=== PATIENT | female | born 1955 | race American Indian/Alaskan Native ===

== ENCOUNTER 2016-12-04 19:02 | Emergency (ER) | payer SELFPAY | END 2016-12-04 20:18 | disposition left against medical advice (07) | LOC: ED 19:02 | DX: Z04.3 Encounter for examination and observation following other accident (principal); Z53.21 Procedure and treatment not carried out due to patient leaving prior to being seen by health care provider ==

== ENCOUNTER 2016-12-28 11:14 | Emergency (ER) | payer MEDICARE ==
[2016-12-28 12:29] VITALS: BP 157/93
[2016-12-28 15:08] LABS: Basophils % (Auto) 0.6 % (0.0-1.8); Eosinophils % (Auto) 6.4 % (0.0-4.3); Hemoglobin 12.9 gm/dl (10.1-14.3); Mean Corpuscular HGB Conc 32 % (30-34); Mean Corpuscular Volume 76 fl (79-97); Platelet Count 248 K/mm3 (140-440); Red Blood Count 5.27 M/mm3 (3.65-5.03); Red Cell Distribution Width 14.5 % (13.2-15.2)
[2016-12-28 15:15] LABS: Mean Corpuscular Hemoglobin 25 pg (28-32)
[2016-12-28 16:05] LABS: Alanine Aminotransferase 24 units/L (7-56); Albumin 4.3 g/dL (3.9-5); Albumin/Globulin Ratio 1.2 %; Alkaline Phosphatase 79 units/L (35-129); Anion Gap 14 mmol/L; BUN/Creatinine Ratio 18.33; Bilirubin,Total 0.3 mg/dL (0.1-1.2); Blood Urea Nitrogen 11 mg/dL (7-17); Calcium 9.6 mg/dL (8.4-10.2); Carbon Dioxide 31 mmol/L (22-30); Chloride 101.1 mmol/L (98-107); Glucose 99 mg/dL (65-100); Lipase 19 units/L (13-60); Potassium 3.7 mmol/L (3.6-5.0); Sodium 142 mmol/L (137-145); Total Protein 7.8 g/dL (6.3-8.2)
[2016-12-28 16:18] LABS: Bilirubin,Urine NEG (Negative); Blood,Urine SM (Negative); Ketones,Urine NEG (Negative); Leukocyte Esterase,Urine NEG (Negative); Mucus,Urine FEW /HPF; Nitrite,Urine NEG (Negative); Protein,Urine <15 mg/dL mg/dL (Negative); Urobilinogen,Urine < 2.0 mg/dL (<2.0)
[2016-12-28 16:24] LABS: WBC,Urine < 1.0 /HPF (0.0-6.0)
--- NOTE | 2016-12-30 18:52 | ED Elopement Review ---
ED Pt Elopement review - Results review Lab results: Laboratory Tests 12/28/16 12/28/16 12/28/16 14:30 14:59 14:59 WBC 4.0 L RBC 5.27 H Hgb 12.9 Hct 40.0 MCV 76 L MCH 25 L MCHC 32 RDW 14.5 Plt Count 248 Lymph % (Auto) 40.3 H [place] % (Auto) 11.4 H Eos % (Auto) 6.4 H Baso % (Auto) 0.6 Lymph # 1.6 [place] # 0.5 Eos # 0.3 Baso # 0.0 Seg Neutrophils % 41.3 Seg Neutrophils # 1.6 L Sodium 142 Potassium 3.7 Chloride 101.1 Carbon Dioxide 31 H Anion Gap 14 BUN 11 Creatinine 0.6 L Estimated GFR > 60 BUN/Creatinine Ratio 18.33 Glucose 99 Calcium 9.6 Total Bilirubin 0.3 AST 26 ALT 24 Alkaline Phosphatase 79 Total Protein 7.8 Albumin 4.3 Albumin/Globulin Ratio 1.2 Lipase 19 Urine Color Yellow Urine Turbidity Clear Urine pH 6.0 Ur Specific [place] 1.015 Urine Protein <15 mg/dl Urine Glucose (UA) Neg Urine Ketones Neg Urine Blood Sm Urine Nitrite Neg Urine Bilirubin Neg Urine Urobilinogen < 2.0 Ur Leukocyte Esterase Neg Urine WBC (Auto) < 1.0 Urine RBC (Auto) 1.0 U Epithel Cells (Auto) 1.0 Urine Mucus Few - Call Back decision Pt Call Back Decision: No action required
== END 2016-12-28 21:00 | disposition left against medical advice (07) ==
LOC: ED 11:14
DX: R10.30 Lower abdominal pain, unspecified (principal); R10.2 Pelvic and perineal pain; Z53.21 Procedure and treatment not carried out due to patient leaving prior to being seen by health care provider
CPT/HCPCS: 36415; 80053; 81001; 83690; 85025

== ENCOUNTER 2017-06-10 12:12 | Emergency (ER) | payer MEDICARE ==
--- NOTE | 2017-06-10 12:29 | Emergency Department Report ---
Stated Complaint: CHEST/DRY MOUTH/FATIGUE Time Seen by Provider: 06/10/17 12:25 - HPI History of Present Illness: PT c/o intermittent dry mouth x 6 weeks. PT c/o intermittent chest pain x 2 weeks - ROS Review of Systems: + allergies - frequency - dysuria - Exam Physical Exam: PT looks well, non toxic. PT in no acute resp distress. RRR MSE screening note: Focused history and physical exam performed. Due to findings the following was ordered: labs, ekg, xr ED Disposition for MSE Condition: Stable
[2017-06-10 12:30] VITALS: BP 140/84
[2017-06-10 12:58] LABS: Basophils % (Auto) 0.6 % (0.0-1.8); Eosinophils % (Auto) 4.7 % (0.0-4.3); Hematocrit 40.6 % (30.3-42.9); Hemoglobin 13.4 gm/dl (10.1-14.3); Mean Corpuscular HGB Conc 33 % (30-34); Mean Corpuscular Volume 76 fl (79-97); Platelet Count 241 K/mm3 (140-440); Red Blood Count 5.34 M/mm3 (3.65-5.03); Red Cell Distribution Width 15.1 % (13.2-15.2); White Blood Count 4.5 K/mm3 (4.5-11.0)
[2017-06-10 12:59] LABS: Mean Corpuscular Hemoglobin 25 pg (28-32)
--- NOTE | 2017-06-10 13:00 | XRay Report ---
CHEST 2 VIEWS INDICATION: Chest pain. COMPARISON: None similar at this institution. FINDINGS: Frontal and lateral chest radiographs demonstrate mild exaggerated heart size. Grossly normal mediastinal and hilar contours. No pleural effusions or CHF. Few bony degenerative changes. CONCLUSION: No significant acute chest process, as described. Thank you for the opportunity to participate in this patient's care.
[2017-06-10 13:08] LABS: Alanine Aminotransferase 14 units/L (7-56); Albumin 4.1 g/dL (3.9-5); Albumin/Globulin Ratio 1.3 %; Alkaline Phosphatase 60 units/L (35-129); Anion Gap 14 mmol/L; BUN/Creatinine Ratio 14.28; Blood Urea Nitrogen 10 mg/dL (7-17); Calcium 9.4 mg/dL (8.4-10.2); Carbon Dioxide 29 mmol/L (22-30); Chloride 103.3 mmol/L (98-107); Glucose 90 mg/dL (65-100); Potassium 3.3 mmol/L (3.6-5.0); Sodium 143 mmol/L (137-145); Total Protein 7.3 g/dL (6.3-8.2)
[2017-06-10 13:09] LABS: INR 0.94 (0.87-1.13)
[2017-06-10 13:10] LABS: Partial Thromboplastin Time 32.3 Sec. (24.2-36.6)
--- NOTE | 2017-06-10 23:32 | ED Elopement Review ---
ED Pt Elopement review - Results review Lab results: Laboratory Tests 06/10/17 06/10/17 06/10/17 12:33 12:33 12:33 WBC 4.5 RBC 5.34 H Hgb 13.4 Hct 40.6 MCV 76 L MCH 25 L MCHC 33 RDW 15.1 Plt Count 241 Lymph % (Auto) 43.6 H [place] % (Auto) 8.4 H Eos % (Auto) 4.7 H Baso % (Auto) 0.6 Lymph # 2.0 [place] # 0.4 Eos # 0.2 Baso # 0.0 Seg Neutrophils % 42.7 Seg Neutrophils # 1.9 PT 12.5 INR 0.94 APTT 32.3 Sodium 143 Potassium 3.3 L Chloride 103.3 Carbon Dioxide 29 Anion Gap 14 BUN 10 Creatinine 0.7 Estimated GFR > 60 BUN/Creatinine Ratio 14.28 Glucose 90 Calcium 9.4 Total Bilirubin 0.30 AST 16 ALT 14 Alkaline Phosphatase 60 Troponin T < 0.010 NT-Pro-B Natriuret Pep < 5 Total Protein 7.3 Albumin 4.1 Albumin/Globulin Ratio 1.3 - Call Back decision Pt Call Back Decision: Call pt to return to ED [facility] (chest pain should be further evaluated)
== END 2017-06-10 13:00 | disposition left against medical advice (07) ==
LOC: ED 12:12
DX: R07.9 Chest pain, unspecified (principal); Z53.21 Procedure and treatment not carried out due to patient leaving prior to being seen by health care provider
CPT/HCPCS: 36415; 71020; 80053; 83880; 84484; 85025; 85610; 85730; 93005; 93010

== ENCOUNTER 2017-09-28 14:52 | Emergency (ER) | payer MEDICARE ==
[2017-09-28 15:23] LABS: Basophils % (Auto) 0.6 % (0.0-1.8); Eosinophils % (Auto) 4.7 % (0.0-4.3); Hematocrit 41.8 % (30.3-42.9); Hemoglobin 13.8 gm/dl (10.1-14.3); Mean Corpuscular HGB Conc 33 % (30-34); Mean Corpuscular Volume 77 fl (79-97); Platelet Count 263 K/mm3 (140-440); Red Blood Count 5.45 M/mm3 (3.65-5.03); Red Cell Distribution Width 14.1 % (13.2-15.2); White Blood Count 4.7 K/mm3 (4.5-11.0)
[2017-09-28 15:25] LABS: Mean Corpuscular Hemoglobin 25 pg (28-32)
[2017-09-28 15:34] LABS: INR 0.85 (0.87-1.13)
[2017-09-28 15:35] LABS: Partial Thromboplastin Time 31.6 Sec. (24.2-36.6)
[2017-09-28 15:43] LABS: Alanine Aminotransferase 19 units/L (7-56); Albumin 4.3 g/dL (3.9-5); BUN/Creatinine Ratio 24; Blood Urea Nitrogen 17 mg/dL (7-17); Calcium 9.3 mg/dL (8.4-10.2); Carbon Dioxide 26 mmol/L (22-30); Glucose 94 mg/dL (65-100); Total Protein 7.5 g/dL (6.3-8.2)
[2017-09-28 15:44] LABS: Albumin/Globulin Ratio 1.3 %; Alkaline Phosphatase 66 units/L (35-129); Anion Gap 17 mmol/L; Chloride 100.5 mmol/L (98-107); Lipase 27 units/L (13-60); Potassium 3.8 mmol/L (3.6-5.0); Sodium 140 mmol/L (137-145)
[2017-09-28 15:47] LABS: Bilirubin,Urine NEG (Negative); Blood,Urine NEG (Negative); Ketones,Urine NEG (Negative); Leukocyte Esterase,Urine NEG (Negative); Mucus,Urine FEW /HPF; Nitrite,Urine NEG (Negative); Protein,Urine <15 mg/dL mg/dL (Negative); Urobilinogen,Urine < 2.0 mg/dL (<2.0); WBC,Urine < 1.0 /HPF (0.0-6.0)
--- NOTE | 2017-09-28 16:38 | Emergency Department Report ---
ED General Adult HPI - General Chief complaint: Abdominal Pain Stated complaint: BLOOD IN STOOL Time Seen by Provider: 09/28/17 16:19 Source: patient Mode of arrival: Ambulatory Limitations: No Limitations - History of Present Illness Initial comments: History of present illness 61-year-old female history of previous hematochezia states that she has been diagnosed with hemorrhoids is set to see GI in October is here stating she had several episodes today and it concerned her and she states that she does occasionally take NSAIDs she notes little bit of bright red blood on the toilet paper and uncontrollable she denies any dizziness denies any chest pain denies abdominal pain denies any black or bloody stool denies any heavy rectal bleeding denies any syncope -: days(s) Radiation: non-radiation Quality: other (no abdominal pain) Associated Symptoms: denies other symptoms - Related Data Allergies Allergy/AdvReac Type Severity Reaction Status Date / Time Seafood Allergy Hives Uncoded 09/28/17 14:53 ED Review of Systems ROS: Stated complaint: BLOOD IN STOOL Other details as noted in HPI Comment: All other systems reviewed and negative Constitutional: no symptoms reported. denies: diaphoresis, fever, malaise, weakness Respiratory: denies: orthopnea, shortness of breath, SOB with exertion, SOB at rest, stridor Cardiovascular: denies: chest pain, palpitations, dyspnea on exertion, orthopnea , syncope ED Past Medical Hx - Past Medical History Hx Diabetes: Yes Hx Arthritis: Yes Additional medical history: Heart problem, back injury, sinus problems - Surgical History Hx Cholecystectomy: Yes Additional Surgical History: Partial hysterectomy - Social History Smoking Status: Never Smoker Substance Use Type: None ED Physical Exam - General Limitations: No Limitations General appearance: alert, in no apparent distress - Head Head exam: Present: atraumatic, normocephalic, normal inspection - Eye Eye exam: Present: normal appearance, PERRL, EOMI - Neck Neck exam: Present: normal inspection. Absent: meningismus - Respiratory Respiratory exam: Present: normal lung sounds bilaterally. Absent: respiratory distress, wheezes, rales, rhonchi, stridor, accessory muscle use - Cardiovascular Cardiovascular Exam: Present: regular rate, normal rhythm, normal heart sounds - GI/Abdominal GI/Abdominal exam: Present: soft, distended, other (rectal exam heme positive brown stool). Absent: tenderness, guarding, rebound, hyperactive bowel sounds, hypoactive bowel sounds, organomegaly, mass, pulsatile mass - Rectal Rectal exam: Present: normal rectal tone, hemorrhoids - Extremities Exam Extremities exam: Present: normal inspection. Absent: normal capillary refill, pedal edema, joint swelling, calf tenderness - Neurological Exam Neurological exam: Present: alert, altered, oriented X3. Absent: motor sensory deficit ED Course Vital Signs 09/28/17 14:53 Temperature 98.2 F Pulse Rate 77 Respiratory 18 Rate Blood Pressure 163/98 O2 Sat by Pulse 100 Oximetry ED Medical Decision Making - Lab Data Result diagrams: 09/28/17 15:06 09/28/17 15:15 - Medical Decision Making Medical decision making patient has stable vital signs she is not orthostatic H& H is stable exam shows a limited amount of heme positive brown stool no melena no active bleeding noted patient has a history of hemorrhoids she is set up for GI evaluation for possible endoscopy and proctoscopy she is a first able to sleep time for outpatient follow-up symptoms are consistent with hematochezia and hemorrhoidal bleeding however she will need endoscopy and is set to see GI in October Critical care attestation.: If time is entered above; I have spent that time in minutes in the direct care of this critically ill patient, excluding procedure time. ED Disposition Clinical Impression: Hematochezia Disposition: TO HOME OR SELFCARE Is pt being admited?: No Condition: Stable Instructions: Abdominal Pain (ED), Rectal Bleeding (ED) Additional Instructions: Return if new or alarming symptoms keep her appointment with her GI doctor or your regular doctor, Colace [id number] as needed as directed Referrals: RADHA MEADOWS MD [Primary Care Provider] - 3-5 Days Time of Disposition: 16:46
[2017-09-28 17:53] VITALS: BP 168/88
== END 2017-09-28 17:55 | disposition home or self-care (01) ==
LOC: ED 14:52
DX: K92.1 Melena (principal); E11.9 Type 2 diabetes mellitus without complications
CPT/HCPCS: 36415; 80053; 81001; 82271; 83690; 85025; 85610; 85730; 86850; 86900; 86901

== ENCOUNTER 2018-04-21 10:50 | Outpatient (CLI) | payer MEDICARE ==
--- NOTE | 2018-04-21 15:59 | Mammography Report ---
BONE DENSITY STUDY: Osteoporosis screening. DEFINITIONS: BMD = Bone Mineral Density T-score = BMD related to mean peak bone mass of young adult (mean expressed in Standard Deviation) Z-score = Age matched BMD expressed in SD World Health Organization (WHO) Diagnostic Criteria Normal T-score > -1 SD Osteopenia T-score between -1 and -2.4 SD Osteoporosis T-score -2.5 SD or below FINDINGS: The weighted average BMD of lumbar spine L1-L4 is 1.5-6 with a T-score of 4.4. The weighted average BMD of the left hip is 1.179 with a T-score of 1.9. IMPRESSION: The patient's average T-score is diagnostic for normal bone density and low relative risk for fracture. NOTE: BMD is not the only risk factor for fracture; also consider factors such as the patient's age, risk of falling, previous osteoporotic fracture, family history of osteoporotic fractures, current smoker, and low body weight. Lara's triangle is a region of interest in femur, predominantly of trabecular bone. It is not a true anatomic site, and [facility] does not recommend its use clinically.
--- NOTE | 2018-04-21 16:05 | Mammography Report ---
Screening mammogram: Routine views demonstrates a generally fatty replaced breast pattern bilaterally. In the upper outer left breast there is a small circumscribed 5 mm nodule which I cannot confirm as representing a small lymph node. The breast pattern bilaterally is not otherwise remarkable. CAD used. Impression: Left asymmetry. Recommendation: This patient's prior exams are being requested before final recommendation. BI-RADS CATEGORY: 0 = Needs additional imaging evaluation ACR BI-RADS MAMMOGRAPHIC CODES: 0 = Needs additional imaging evaluation; 1 = Negative; 2 = Benign; 3 = Probably benign; 4 = Suspicious; 5 = Malignant; 6 = Known biopsy-proven malignancy COMMENT: 1. Dense breast tissue, i.e., adenosis, fibrocystic changes, etc., may obscure an underlying neoplasm. 2. Approximately 10% of cancers are not detected with mammography. 3. A negative mammography report should not delay biopsy if a clinically suspicious mass is present.
== END 2018-04-21 10:51 | disposition home or self-care (01) ==
LOC: MAMMO 10:50
PROVIDERS: ATTEND Physician Assistant
DX: Z12.31 Encounter for screening mammogram for malignant neoplasm of breast (principal); Z13.820 Encounter for screening for osteoporosis; N64.89 Other specified disorders of breast; F17.210 Nicotine dependence, cigarettes, uncomplicated; M19.90 Unspecified osteoarthritis, unspecified site; Z90.49 Acquired absence of other specified parts of digestive tract; Z90.710 Acquired absence of both cervix and uterus
CPT/HCPCS: 77067; 77080